=== PATIENT | male | born 1980 ===

== ENCOUNTER 2023-10-25 11:00 | Inpatient (IN) | payer OTHER ==
[~2023-10-25] VITALS: Ht 180.3 cm; Wt 99.8 kg
[2023-10-25] MEDS ORDERED: TOPROL XL50 M1 PO (12:46)
[2023-11-01] MEDS ORDERED: BUPIVACAINE HCL/MPF 0.5% 30ML VIAL ONE (07:02)
[2023-11-01] MEDS ORDERED: LIDOCAINE HCL 1%/EPINEPHRINE 20ML VIAL IJ ONE ×2 (07:03→08:45)
[2023-11-01] MEDS ORDERED: METRONIDAZOLE/SODIUM CHLORIDE 500 MG/100 ML PIGGYBACK IV ONE ×2 (07:03→08:45)
[2023-11-01] MEDS ORDERED: CEFTRIAXONE SODIUM 2,000 MG VIAL ONE (07:03)
[2023-11-01] MEDS ORDERED: BUPIVACAINE HCL 30 ML VIAL IJ ONE (08:45)
[2023-11-01] MEDS ORDERED: CEFTRIAXONE SODIUM 2,000 MG VIAL IV ONE (08:45)
[2023-11-01] MEDS ORDERED: ONDANSETRON HCL 2 MG/ML VIAL IV PRN (13:45)
[2023-11-01] MEDS ORDERED: MORPHINE SULFATE 4 MG/ML CARTRIDGE IV PRN (13:45)
[2023-11-01] MEDS ORDERED: RINGERS SOLUTION,LACTATED 1,000 ML IV SCH (13:45)
[2023-11-01] MEDS ORDERED: OxyCODONE HCL 5 MG TABLET (ROXICODONE) PO PRN (13:45)
[2023-11-01] MEDS ORDERED: ACETAMINOPHEN 500 MG GEL..CAP PO ONE (13:59)
[2023-11-01] MEDS ORDERED: ACETAMINOPHEN 500 MG GEL..CAP PO SCH (14:00)
[2023-11-01 15:17] LABS: HEMOGLOBIN 13.9 g/dL (13-16.00); MEAN CELL VOLUME 85.7 fL (80.0-100.00); MEAN CORPUSCULAR HEMOGLOBIN 29.1 pg (27.00-32.0); MEAN CORPUSCULAR HGB CONC 33.9 g/dl (32.0-36.0); PLATELET COUNT 220 K/uL (150-450); RED BLOOD COUNT 4.79 M/uL (4.00-6.00); RED CELL DISTRIBUTION WIDTH 13.6 % (11.5-14.5)
[2023-11-01] MEDS ORDERED: SIMETHICONE 125 MG CAPSULE PO SCH (17:00)
[2023-11-01] MEDS ORDERED: POLYETHYLENE GLYCOL 3350 17 GM BLIST.PACK PO SCH (17:00)
[2023-11-01] MEDS ORDERED: METOCLOPRAMIDE HCL 5 MG/ML VIAL IV SCH (17:00)
[2023-11-01] MEDS ORDERED: HYOSCYAMINE SULFATE 0.125 MG TAB.SUBL SL SCH (17:00)
[2023-11-01] MEDS ORDERED: CELECOXIB 200 MG CAPSULE PO SCH (17:00)
[2023-11-01] MEDS ORDERED: GABAPENTIN 300 MG CAPSULE PO SCH (17:00)
[2023-11-01] MEDS ORDERED: ENALAPRILAT DIHYDRATE 1.25 MG/ML VIAL IV PRN (19:15)
[2023-11-01] MEDS ORDERED: FAMOTIDINE/PF 20 MG/2 ML VIAL IV PUSH SCH (21:00)
[2023-11-02 05:43] LABS: HEMATOCRIT 41.6 % (39.0-48.0); HEMOGLOBIN 13.9 g/dL (13-16.00); MEAN CELL VOLUME 87.1 fL (80.0-100.00); MEAN CORPUSCULAR HEMOGLOBIN 29.1 pg (27.00-32.0); MEAN CORPUSCULAR HGB CONC 33.4 g/dl (32.0-36.0); PLATELET COUNT 216 K/uL (150-450); RED BLOOD COUNT 4.78 M/uL (4.00-6.00)
[2023-11-02 05:52] LABS: ALBUMIN 3.3 gm/dL (3.4-5.0); CALCIUM 8.9 mg/dL (8.5-10.1); CREATININE SERUM 0.86 mg/dL (0.70-1.30); MAGNESIUM 1.8 mg/dL (1.8-2.4); PHOSPHOROUS 3.5 mg/dL (2.5-4.9); POTASSIUM 4.25 mEq/L (3.5-5.1)
[2023-11-02] MEDS ORDERED: LACTULOSE 20 G/30 ML BLIST.PACK PO SCH (09:00)
[2023-11-02] MEDS ORDERED: METOPROLOL SUCCINATE 50 MG TAB.SR.24H PO SCH (09:00)
[2023-11-02] MEDS ORDERED: LACTOBACILLUS ACIDOPHILUS 1 CAP CAP PO SCH (09:00)
[2023-11-02] MEDS ORDERED: ENOXAPARIN SODIUM 40 MG/0.4 ML SYRINGE SUBCUTANEO SCH (17:00)
[2023-11-03 06:50] LABS: HEMATOCRIT 38.7 % (39.0-48.0); HEMOGLOBIN 13.1 g/dL (13-16.00); MEAN CELL VOLUME 87.5 fL (80.0-100.00); MEAN CORPUSCULAR HEMOGLOBIN 29.6 pg (27.00-32.0); MEAN CORPUSCULAR HGB CONC 33.9 g/dl (32.0-36.0); PLATELET COUNT 211 K/uL (150-450); RED BLOOD COUNT 4.42 M/uL (4.00-6.00)
[2023-11-03 07:41] LABS: CALCIUM 8.9 mg/dL (8.5-10.1); CREATININE SERUM 0.96 mg/dL (0.70-1.30); GFR 86.32; MAGNESIUM 1.9 mg/dL (1.8-2.4); PHOSPHOROUS 2.9 mg/dL (2.5-4.9); POTASSIUM 4.44 mEq/L (3.5-5.1)
[2023-11-03] MEDS ORDERED: ENOXAPARIN SODIUM 40 MG/0.4 ML SYRINGE SUBCUTANEO SCH (09:00)
== END 2023-11-03 10:44 | disposition home or self-care (01) | DRG 330 ==
LOC: O/R 11-01 05:19 → SURH 11-01 11:00 → SURG 11-01 17:02
PROVIDERS: Internal Medicine Geriatric Medicine; ADMIT Colon & Rectal Surgery; ATTEND Colon & Rectal Surgery
PROC: 0DBP4ZZ Excision of Rectum, Percutaneous Endoscopic Approach (ICD-10-PCS; 2023-11-01)
PROC: 07BC4ZX Excision of Pelvis Lymphatic, Percutaneous Endoscopic Approach, Diagnostic (ICD-10-PCS; 2023-11-01)
PROC: 0DTN4ZZ Resection of Sigmoid Colon, Percutaneous Endoscopic Approach (ICD-10-PCS; principal; 2023-11-01 14:45)
DX: C18.7 Malignant neoplasm of sigmoid colon (principal); K92.1 Melena

== ENCOUNTER 2024-01-03 05:32 | Day surgery (SDC) | payer OTHER ==
[~2024-01-03 05:32] MED LIST: TOPROL XL50 M1 PO
[2024-01-03] MEDS ORDERED: LIDOCAINE HCL 1% 20ML VIAL IJ ONE ×2 (07:05→10:15)
[2024-01-03] MEDS ORDERED: CEFAZOLIN SODIUM 1,000 MG VIAL ONE (07:05)
[2024-01-03] MEDS ORDERED: BUPIVACAINE HCL/Mpf 0.5% 10ML VIAL ONE (07:05)
[2024-01-03] MEDS ORDERED: HEPARIN SODIUM,PORCINE 500 UNITS/5 ML VIAL IV ONE ×2 (07:06→10:15)
[2024-01-03] MEDS ORDERED: CEFAZOLIN SODIUM 1,000 MG VIAL IV ONE (10:15)
[2024-01-03] MEDS ORDERED: BUPIVACAINE HCL 30 ML VIAL IJ ONE (10:15)
== END 2024-01-03 13:05 | disposition home or self-care (01) ==
LOC: CIR.AMB 05:32
PROVIDERS: ATTEND Colon & Rectal Surgery
DX: C18.7 Malignant neoplasm of sigmoid colon (principal); Z88.8 Allergy status to other drugs, medicaments and biological substances